=== PATIENT | male | born 1975 | race African-American/Black ===

== ENCOUNTER 2023-08-17 01:30 | Emergency (ER) | payer MEDICAID ==
[~2023-08-17] VITALS: Ht 182.9 cm; Wt 72.6 kg
[2023-08-17 01:37] VITALS: BP 130/66; PULSE 91; RESP 20; TEMP 98.3; O2SAT 98
[2023-08-17 02:30] VITALS: BP 126/66; PULSE 90; RESP 20; TEMP 98; O2SAT 98
== END 2023-08-17 02:00 ==
LOC: MED 01:30
DX: Z02.89 Encounter for other administrative examinations (principal); R51.9 Headache, unspecified; Z88.5 Allergy status to narcotic agent; V49.9XXA Car occupant (driver) (passenger) injured in unspecified traffic accident, initial encounter; Y93.89 Activity, other specified; Y92.410 Unspecified street and highway as the place of occurrence of the external cause; Y99.8 Other external cause status
CPT/HCPCS: 99283